=== PATIENT | male | born 1965 | race Caucasian/White ===

== ENCOUNTER 2016-10-07 16:19 | Emergency (ER) | payer OTHER, MEDICAID ==
[~2016-10-07] VITALS: Ht 165.1 cm; Wt 89.8 kg
[2016-10-07 17:00] VITALS: BP 147/93; PULSE 91; RESP 18; TEMP 98.3; O2SAT 97
== END 2016-10-07 17:54 | disposition left against medical advice (07) ==
LOC: SED 16:19
DX: M54.5 Low back pain (principal); Z53.21 Procedure and treatment not carried out due to patient leaving prior to being seen by health care provider